=== PATIENT | female | born 1950 | race Caucasian/White ===

== ENCOUNTER 2021-05-07 13:18 | Emergency (ER) | payer MEDICARE ==
[2021-05-07] MEDS ORDERED: HYDROcodone/Acetaminophen 5/325 mg Tablet ONE (14:17)
== END 2021-05-07 15:54 | disposition home or self-care (01) ==
LOC: CSHERS 13:18
DX: S52.501A Unspecified fracture of the lower end of right radius, initial encounter for closed fracture (principal); S52.601A Unspecified fracture of lower end of right ulna, initial encounter for closed fracture; E03.9 Hypothyroidism, unspecified; W18.31XA Fall on same level due to stepping on an object, initial encounter
CPT/HCPCS: 29125

== ENCOUNTER 2022-04-23 14:29 | Outpatient (CLI) | payer MEDICARE | END 2022-04-23 14:30 | disposition home or self-care (01) | LOC: CSHRAD 14:29 | PROVIDERS: ATTEND Internal Medicine Rheumatology | DX: M54.50 Low back pain, unspecified (principal); M47.816 Spondylosis without myelopathy or radiculopathy, lumbar region | CPT/HCPCS: 72100 ==